=== PATIENT | female | born 1960 ===

== ENCOUNTER 2022-05-15 16:37 | Inpatient (IN) | payer MEDICARE, OTHER ==
[~2022-05-15] VITALS: Ht 162.6 cm; Wt 95.7 kg
[2022-05-15] MEDS ORDERED: MAGNESIUM HYDROXIDE 30 ML LIQUID UDC PO PRN (17:00)
[2022-05-15] MEDS ORDERED: MAG HYDROX/AL HYDROX/SIMETH 30 ML LIQUID UDC PO PRN (17:00)
[2022-05-15] MEDS ORDERED: ZOLPIDEM 5 MG TABLET PO PRN (17:00)
[2022-05-15] MEDS ORDERED: BLOOD SUGAR DIAGNOSTIC 1 EACH STRIP VI ONE (17:30)
[2022-05-15] MEDS ORDERED: TRAM50TA2 PO (18:43)
[2022-05-15] MEDS ORDERED: IBUP-1955 PO (18:47)
--- NOTE | 2022-05-15 19:11 | NUR ---
Admitted a case of 62 years old female from [facility] with history of Bipolar, Hepatitis A, , and tonsiloctomy. Patient is on 5150 status. Patient arrived in a stretcher accompanied by EMT. Initial report given by Merissa JIMENEZ. On admission patient was cooperative to physical assessment and vital signs. Skin assessment revealed lower extremities discoloration. Patient requires minimal assistance with ADL. Upon face to face, patient appeared alert, oriented to person and place, redirectable, anxious, irritable at times. Patient denies SI/HI AH/VH, SOB, pain or any discomfort. Patient refused to sign and consent to all admission documents. Patient was also offered brief orientation to unit rules and policies and given copy of patient's rights handbook. Patient did not bring any belongings or valuables. Psychiatrist Jessica and Medical physician Richard were informed and orders were carried out. Emotional support provided. Fall and safety precautions implemented.
[2022-05-15 19:58] VITALS: BP 108/69
--- NOTE | 2022-05-16 01:56 | NUR ---
GPS: Pt.woke up at this time. Confused,loud,irritable,intrusive,psychotic. Discouraged from being loud. Verbally abusive and verbally agitated. Refusing to be re-directed. Talking to self non-stop. Ativan 1mg PO offered but strongly refused. Safe environment provided. Will continue to monitor behavior for further escalation.
--- NOTE | 2022-05-16 02:25 | NUR ---
GPS: Pt.was combative/uncooperative during incontinence care earlier. Noted pt.to have removed diaper and threw it on the floor.
[2022-05-16] MEDS: LORAZEPAM 1 MG TABLET PO PRN (02:58)
--- NOTE | 2022-05-16 06:23 | NUR ---
GPS: Asleep at this time with resp.even and unlabored. Bed alarm on for safety. Behavior monitoring continues.
[2022-05-16 07:30] VITALS: BP 133/59
[2022-05-16] MEDS ORDERED: TRAMADOL HCL 50 MG TABLET PO PRN (07:30)
[2022-05-16 08:04] LABS: MEAN CORPUSCULAR HEMOGLOBIN 29.2 uug (24.7-32.8); MEAN CORPUSCULAR VOLUME 86.9 fL (75.5-95.3); PLATELET COUNT (AUTO) 264 K/uL (179-408)
[2022-05-16] MEDS ORDERED: OLANZAPINE 10 MG VIAL IM ONE (08:15)
[2022-05-16 08:20] LABS: CREATININE 0.5 mg/dL (0.6-1.3); POTASSIUM 3.7 mmol/L (3.5-5.1)
--- NOTE | 2022-05-16 08:30 | NUR ---
Patient became verbally abusive, aggressive, agitated, threatening physical harm to others, striking out at others, combative. Psychiatrist ordered Zyprexa 10 mg IM. Four people were necessary to administer medication, but no force needed. Emotional support provided. Fall and safety precautions implemented.
[2022-05-16] MEDS: OLANZAPINE 5 MG TABLET PO SCH ×2 (09:00→16:54)
[2022-05-16] MEDS: DIVALPROEX 500 MG TABLET.DR PO SCH ×2 (09:00→20:39)
--- NOTE | 2022-05-16 09:36 | NUR ---
Firearms Report: Advertisement Compositor completed and submitted a [employer] firearms report for 5150 grave disability certifications. A copy of report has been placed in patient chart.
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
--- NOTE | 2022-05-16 13:22 | NUR ---
Treatment Plan: Patient refused to sign treatment plan due to disorganized thought process.
--- NOTE | 2022-05-16 13:22 | NUR ---
NENA Initial Discharge Note: Patient is currently homeless. NENA attempted to call pt's son, Chepe, listed as person to notify on facesheet, to discuss discharge plan; however, person who answered the phone stated they are not Chepe and did not speak Slovak. NENA will continue to work with pt and MD to ensure a safe and proper discharge plan.
--- NOTE | 2022-05-16 13:23 | NUR ---
NENA Family Contact: SW attempted to call pt's son, Chepe ([phone]) listed as person to notify on facesheet, to discuss discharge plan; however, person who answered the phone stated they are not Chepe and did not speak Zambian.
[2022-05-16] MEDS ORDERED: HALOPERIDOL LACTATE 5 MG/1 ML VIAL IM ONE (13:45)
[2022-05-16] MEDS ORDERED: diphenhydrAMINE 50 MG/1 ML VIAL IM ONE (13:45)
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
--- NOTE | 2022-05-16 14:34 | NUR ---
Received patient awake pacing in the hallway. Patient is A/O X 2 to person. Patient is restless, delusional "My name is not Nelsy, I'm Kathy" "That purple purse is mine not yours. Give it to me" "I hate this bar". Patient is argumentative, no directable, intrusive. Reality orientation provided. Fall and safety precautions implemented.
[2022-05-16 16:26] VITALS: BP 142/61
[2022-05-17] MEDS ORDERED: LORAZEPAM 2 MG/1 ML VIAL IM ONE ×3 (01:30→13:15)
[2022-05-17] MEDS ORDERED: OLANZAPINE 10 MG VIAL IM ONE ×2 (01:30→08:15)
--- NOTE | 2022-05-17 02:18 | NUR ---
Received patient at the nurses station in the john-chair sleeping. When she woke up, she started demanding in a loud voice for multiple items, mostly food. She urinated in the john-chair and was reluctant to clean up. As time went on, her behavior escalated to the point where she was yelling, pacing in the halls, urinating into containers and non redirectable. Multiple staff attempted to calm patient, to no avail. Patient then began to bang on the doors which disrupted the entire unit. Patient was not responding to the least restrictive measures available. At that point Dr. Lopez was notified and orders were received for IM medication. Security was notified and present. The patient was compliant with the injections and no hands on was needed. Vital signs stable. Safety strategies remain in place. Continuing close monitoring for further behavior escalations and acute distress of any kind.
--- NOTE | 2022-05-17 08:45 | NUR ---
Patient is awake, intrusive and disruptive. pt is making harassing statements to the staff and other patients. Pt went to the bathroom and came out with a cup in her hand. pt walked inside the nursing station and stated "Hey, I got my urine for you." Pt was making gestures as she was about to throw it. Pt then came to the sink and threw urine in there. pt was difficult to redirect to step out of the nursing station. Pt has poor boundaries, walking into wrong rooms and attempting to get other patients' food. Pt refused scheduled medications. Dr. Lopez was contacted, order for Zyprexa 10mg and Ativan 1 mg IM was obtained. Medication given with present of security. Pt tolerated well.
[2022-05-17] MEDS: OLANZAPINE 5 MG TABLET PO SCH ×2 (09:00→17:00)
[2022-05-17] MEDS: DIVALPROEX 500 MG TABLET.DR PO SCH ×2 (09:00→20:23)
--- NOTE | 2022-05-17 10:00 | NUR ---
Pt is resting in bed, appears asleep. No distress noted. Pt refused VS recheck. Breathing is non-labored. will continue to monitor.
--- NOTE | 2022-05-17 12:45 | NUR ---
PT IS AWAKE, DISRUPTIVE ON THE UNIT. PT WAS DISROBING IN THE DINNING ROOM. PT WAS NOTED TO TOUCH OTHER PATIENT, STATING IT WAS HER . PT IS WALKING INSIDE THE NURSING STATION, DIFFICULT TO REDIRECT, DEMANDS CLOTHING THAT BELONGS TO STAFF. PT IS DEMANDING, CRYING WHEN REDIRECTED. DR. MACARIO WAS CONTACTED, ORDER FOR HALDOL 5MG, ATIVAN 1MG, BENADRYL 25MG IM WAS ORDERED. MEDICATION GIVEN WITH PRESENCE OF SECURITY. PT TOLERATED WELL.
[2022-05-17] MEDS ORDERED: HALOPERIDOL LACTATE 5 MG/1 ML VIAL IM ONE (13:15)
[2022-05-17] MEDS ORDERED: diphenhydrAMINE 50 MG/1 ML VIAL IM ONE (13:15)
--- NOTE | 2022-05-17 14:30 | NUR ---
PT IS RESTING IN BED, APPEARS ASLEEP. NO DISTRESS NOTED. PT IS REFUSING VITAL SIGNS RECHECK.
--- NOTE | 2022-05-17 18:00 | NUR ---
PT IS AWAKE, WALKING AROUND THE UNIT IN A GOWN, NEEDS TO BE REMINDED TO KEEP HER CLOTHES ON. PT IS NON-SENSICAL, ASKING STAFF TO DRIVE HER UP NORTH.
--- NOTE | 2022-05-17 20:24 | NUR ---
GPS: Pt.is loud,psychotic,hostile,intrusive,unpredictable and easily agitated when staff sets limits on her. Needs frequent re-direction from staff. Confused,disorganized and tangential/ has flight of ideas. Frequently going in and out of other pt's rooms. Re-directed constantly. Took Depakote bedtime dose but refused Zyprexa 5mg (1700) dose when re-offered to pt. Pt.has poor insight to her mental illness and present situation. Safe environment provided. Will continue to monitor for further escalation of behavior.
[2022-05-18] MEDS: LORAZEPAM 1 MG TABLET PO PRN ×2 (01:36→20:25)
--- NOTE | 2022-05-18 05:24 | NUR ---
GPS: Pt.now awake and frequently at nurses station trying to test limits. Confused,disorganized,easily agitated when being re-directed. Loud,intrusive and hyper-verbal. Constant re-direction provided. Discouraged from going into other pt's rooms. Safe environment provided. Will continue to monitor behavior for further escalation.
[2022-05-18] MEDS: OLANZAPINE 5 MG TABLET PO SCH ×4 (08:38→20:02)
[2022-05-18] MEDS: DIVALPROEX 500 MG TABLET.DR PO SCH ×2 (08:38→20:02)
[2022-05-18] MEDS ORDERED: diphenhydrAMINE 50 MG/1 ML VIAL IM PRN (10:00)
[2022-05-18] MEDS ORDERED: HALOPERIDOL LACTATE 5 MG/1 ML VIAL IM PRN (10:00)
[2022-05-18] MEDS ORDERED: OLANZAPINE 5 MG TABLET PO SCH (10:00)
--- NOTE | 2022-05-18 10:30 | NUR ---
patient is agitation and not compliant with all po medication, on Riese Haldol and Benadryl IM given per MD ordered.
[2022-05-18] MEDS: diphenhydrAMINE 50 MG/1 ML VIAL IM PRN ×2 (10:32→16:37)
[2022-05-18] MEDS: HALOPERIDOL LACTATE 5 MG/1 ML VIAL IM PRN ×2 (10:32→16:37)
--- NOTE | 2022-05-18 11:32 | NUR ---
WOUND CARE CONSULT: PT SCREAMING AND REFUSING SKIN ASSESSMENT EVEN AFTER HAVING INJECTION. WILL SEE PT PT CONDITION PERMITS. REVIEWED CHART, NURSING DOCUMENTATION AND PHOTOS WHICH INDICATE SOME REDNESS AND DRY ABRASIONS ON FEET, PRESENT ON ADMISSION. DEFER TO PMD.
--- NOTE | 2022-05-18 14:31 | NUR ---
patient is psychotic hostile pacing in hallway , needs frequently redirection . patient constantly stand on exit door unpredictable,continue refused PRN medication ,will close monitoring.
--- NOTE | 2022-05-18 20:11 | NUR ---
GPS: Pt.remains loud,psychotic,labile,irritable and verbally aggressive. Constant re-direction and limit setting done by staff. Took bedtime meds. PO after some persuasion from staff. Safe environment provided. Behavior monitoring continues.
[2022-05-19] MEDS: LORAZEPAM 1 MG TABLET PO PRN ×2 (03:28→19:55)
--- NOTE | 2022-05-19 05:31 | NUR ---
GPS: Pt.awake at this time and frequently at nurses station to ask for things. Needy and attention seeking. Disorganized and non-sensical. Easily irritable when being re-directed. Discouraged from talking loud at this time. Safe environment provided. Staff continues to set limits on pt. Re-directed prn.
[2022-05-19] MEDS: OLANZAPINE 5 MG TABLET PO SCH ×3 (08:32→19:55)
[2022-05-19] MEDS: DIVALPROEX 500 MG TABLET.DR PO SCH ×2 (08:32→19:55)
--- NOTE | 2022-05-19 15:03 | NUR ---
Received patient awake in the activity room. Patient is argumentative, suspicious, anxious, agitated, hyperverbal, sarcastic, accusatory "You're not taking care of this man the whole day. I'm GERONTOLOGY AIDE and know what to do with patients". Patient presents grandiose "I had been all over the world, including [place]" "I had been in [place], and cost me my condo, I regret it". Patient is A/O X 2 to person, place. Patient requires lots of redirection and prompts. Patient is encourage to vent feelings. Fall and safety precautions implemented.
[2022-05-19 16:02] VITALS: BP 153/57
[2022-05-19 19:42] VITALS: BP 121/68
--- NOTE | 2022-05-20 02:09 | NUR ---
Patient has been up and down all night. Coming to the nurses station with no cloths on, demanding food. Very argumentative, delusional, paranoid and difficult to redirect. The patient speaks in a loud voice and has no consideration for the other patients. The patient is verbally abusive and labile. The patient took PM medication but is resistant to PRN medication at this time. Safety Stratiges are in place and continuing to monitor for behavior escalation.
[2022-05-20] MEDS: LORAZEPAM 1 MG TABLET PO PRN ×3 (02:32→20:39)
[2022-05-20 07:56] VITALS: BP 124/101
[2022-05-20] MEDS: OLANZAPINE 5 MG TABLET PO SCH ×3 (08:09→20:39)
[2022-05-20] MEDS: DIVALPROEX 500 MG TABLET.DR PO SCH ×2 (08:09→20:39)
--- NOTE | 2022-05-20 15:09 | NUR ---
Received patient is psychotic hostile pacing in hallway , needs frequently redirection . patient ambulate with walker constantly comes to nurse station asking for coffee,water and food.prn medication given as ordered.
[2022-05-20] MEDS: HALOPERIDOL LACTATE 5 MG/1 ML VIAL IM PRN (17:07)
[2022-05-20] MEDS: diphenhydrAMINE 50 MG/1 ML VIAL IM PRN (17:07)
--- NOTE | 2022-05-20 17:28 | NUR ---
patient refused po medication , IM given as ordered.
[2022-05-20 19:55] VITALS: BP 111/60
--- NOTE | 2022-05-21 04:25 | NUR ---
Patient is intrusive and hyperverbal, yelling out nonsensical, tangential statements. Pt refuses to be redirected and can become aggressive when trying to educate on any topic. Pt continues to yell out insults to staff and other residents.
[2022-05-21] MEDS: ACETAMINOPHEN 325 MG TABLET PO PRN ×2 (07:03→07:07)
[2022-05-21] MEDS: LORAZEPAM 1 MG TABLET PO PRN ×3 (07:03→17:29)
[2022-05-21] MEDS: HALOPERIDOL LACTATE 5 MG/1 ML VIAL IM PRN ×2 (08:22→20:57)
[2022-05-21] MEDS: diphenhydrAMINE 50 MG/1 ML VIAL IM PRN ×2 (08:22→20:57)
[2022-05-21] MEDS: DIVALPROEX 500 MG TABLET.DR PO SCH ×3 (08:29→20:51)
[2022-05-21] MEDS: OLANZAPINE 5 MG TABLET PO SCH ×4 (08:30→20:51)
[2022-05-21] MEDS: HALOPERIDOL 5 MG TABLET PO SCH ×2 (08:30→17:27)
[2022-05-21] MEDS: BENZTROPINE MESYLATE 1 MG TABLET PO SCH ×2 (09:00→17:27)
--- NOTE | 2022-05-21 11:02 | NUR ---
NENA Family Contact: NENA spoke with pt's son, Chepe ([phone]). Chepe stated pt does not have a DPOA or conservator. Chepe is agreeable for pt to discharge to a correction facility. Chepe is aware that pt is riesed and stated pt has a long hx of psych problems and many diagnosis. Per Chepe, the pt has been hospitalized in over 80 psych hospitals. Chepe appeared very helpful and stated he will be available to contact with further treatment and discharge updates.
--- NOTE | 2022-05-21 15:12 | NUR ---
Clinical SW Note: Pt continues to appear verbally abusive. Pt appears at this SW's door multiple times a day and presents with inappropriate statements. Pt continues to appear labile, manic and verbally aggressive.
--- NOTE | 2022-05-21 15:37 | NUR ---
Received patient is agitation intrusive and not compliant with all po medication, on Riese Haldol and Benadryl IM given per MD ordered. patient ambulate in hallway with FWW psychotic irritable ,unable to attend in group activity ,poor insight and poor judgement will continue close monitoring.
--- NOTE | 2022-05-22 06:19 | NUR ---
GPS: Remain uncooperative with care. hyperverbal and verbally abusive to staff. pacing in the smith way and talking to her self, disturbing her room mate. offered ativan for agitation.pt refused. slept 7.15 hrs through the night.
[2022-05-22 07:36] VITALS: BP 182/90
[2022-05-22] MEDS: LORAZEPAM 1 MG TABLET PO PRN ×2 (08:27→23:18)
[2022-05-22] MEDS: OLANZAPINE 5 MG TABLET PO SCH ×2 (08:28→16:49)
[2022-05-22] MEDS: HALOPERIDOL 5 MG TABLET PO SCH ×5 (08:28→20:05)
[2022-05-22] MEDS: BENZTROPINE MESYLATE 1 MG TABLET PO SCH ×2 (08:28→16:49)
[2022-05-22] MEDS: DIVALPROEX 500 MG TABLET.DR PO SCH ×2 (08:28→20:05)
[2022-05-22] MEDS: HALOPERIDOL LACTATE 5 MG/1 ML VIAL IM PRN (13:01)
[2022-05-22] MEDS: diphenhydrAMINE 50 MG/1 ML VIAL IM PRN (13:01)
--- NOTE | 2022-05-22 13:09 | NUR ---
Patient refused Haldol 5 mg PO, Haldol 5 mg IM and Benadryl 25 mg IM was given as back up since patient is riesed.
--- NOTE | 2022-05-22 15:36 | NUR ---
Received patient sleeping in her room. Patient is A/O X 2 to patient, place. Patient is attention seeker, needy, hyperverbal, intrusive, manic, poor impulse control, crying, delusional grandiose, argumentative. Patient requires more than minimal assistance with ADL. Patient had a bowel movement in a cup to serve to Psychiatrist and make him eat it this morning. Reality orientation provided. Fall and safety precautions implemented.
--- NOTE | 2022-05-22 23:18 | NUR ---
patient is wondering around in the hallway pushing the bedside table talking loud and Disturbing other patients. ativan 1 mg po prn given for agitation.
--- NOTE | 2022-05-23 00:18 | NUR ---
patient is calm now. prn effective for agitation.
--- NOTE | 2022-05-23 06:10 | NUR ---
GPS: Remain uncooperative with care. hyperverbal and verbally abusive to staff. pacing in the smith way and talking to her self, disturbing her room mate. offered ativan for agitation.pt refused. slept 4.30 hrs through the night.
[2022-05-23] MEDS: DIVALPROEX 500 MG TABLET.DR PO SCH ×3 (07:20→16:54)
[2022-05-23] MEDS: OLANZAPINE 5 MG TABLET PO SCH ×2 (08:47→16:55)
[2022-05-23] MEDS: BENZTROPINE MESYLATE 1 MG TABLET PO SCH ×2 (08:47→16:54)
[2022-05-23] MEDS: HALOPERIDOL 5 MG TABLET PO SCH ×4 (08:47→20:26)
[2022-05-23] MEDS: HALOPERIDOL LACTATE 5 MG/1 ML VIAL IM PRN ×3 (09:01→17:14)
[2022-05-23] MEDS: diphenhydrAMINE 50 MG/1 ML VIAL IM PRN ×3 (09:01→17:15)
--- NOTE | 2022-05-23 15:06 | NUR ---
Patient is hyperverbal, intrusive, manic, uncooperative with nursing care, refusing vitals and medications. Patient states "I prefer injections instead of pills" Patient was threatening to throw coffee at staff, but did not do it". Patient keeps trying to get in the nursing station. Patient needs to be redirected most of the time. Patient has poor judgement and impulse control. Reality orientation provided. Fall and safety precautions implemented.
[2022-05-23] MEDS: LORAZEPAM 1 MG TABLET PO PRN (20:40)
--- NOTE | 2022-05-23 20:56 | NUR ---
GPS: Remains loud,hyper-verbal,intrusive and testing limits. Has poor impulse control and poor insight to present situation. Needs constant re-direction from staff. Took bedtime med.PO without any problems. Will continue to monitor.
[2022-05-24 07:30] VITALS: BP 149/79
[2022-05-24] MEDS: HALOPERIDOL 5 MG TABLET PO SCH ×3 (08:32→17:08)
[2022-05-24] MEDS: risperiDONE 2 MG TABLET PO SCH ×2 (08:32→17:07)
[2022-05-24] MEDS: DIVALPROEX 500 MG TABLET.DR PO SCH ×3 (08:33→17:07)
[2022-05-24] MEDS: LITHIUM CARBONATE 300 MG CAPSULE PO SCH ×2 (08:33→17:08)
[2022-05-24] MEDS: BENZTROPINE MESYLATE 1 MG TABLET PO SCH ×2 (08:33→17:07)
--- NOTE | 2022-05-24 14:57 | NUR ---
Received patient awake in the hallway. Patient is A/O X 2 to person, place. Patient is demanding, needy, argumentative, intrusive, hyperverbal, accusatory. Patient states "This is a horrible place without cigarettes privileges" "You treat us bad" Patient is verbally abusive. Patient states "Where's the wet back? and the sand nigger one?" "You're chubby with fat ass" "Hey, ugly face". "Where's Dr. jansen?" Requires minimal assistance with ADL. Reality orientation provided. Fall and safety precautions implemented.
[2022-05-24 16:00] VITALS: BP 137/63
[2022-05-24] MEDS: LORAZEPAM 1 MG TABLET PO PRN (19:53)
[2022-05-24 20:12] VITALS: BP 142/69
--- NOTE | 2022-05-24 20:45 | NUR ---
GPS: Remains loud,labile,argumentative,intrusive and continues to require frequent re-direction from staff. Limit setting continues to be provided by staff on a frequent basis. Ativan 1mg PO given earlier. Safe environment provided. Will continue to monitor behavior.
[2022-05-25] MEDS: BENZTROPINE MESYLATE 1 MG TABLET PO SCH ×2 (08:35→21:00)
[2022-05-25] MEDS: risperiDONE 2 MG TABLET PO SCH ×2 (08:35→21:00)
[2022-05-25] MEDS: HALOPERIDOL 5 MG TABLET PO SCH ×4 (08:36→21:00)
[2022-05-25] MEDS: LITHIUM CARBONATE 300 MG CAPSULE PO SCH ×2 (08:36→21:00)
[2022-05-25] MEDS: DIVALPROEX 500 MG TABLET.DR PO SCH ×5 (08:38→21:00)
--- NOTE | 2022-05-25 10:32 | NUR ---
SNF Referral: SW faxed patient's referral packet including: History and Physical, Consultation, Progress Notes, Medication List and Labs to the following facilities for review and possible correction placement: [facility] [address] [place] [address]. NENA spoke with Lizzy tse ([phone]). F:[phone]
[2022-05-25] MEDS: LORAZEPAM 1 MG TABLET PO PRN (12:12)
[2022-05-25] MEDS: chlorproMAZINE 50 MG/2 ML AMPUL IM PRN ×2 (13:20→21:54)
--- NOTE | 2022-05-25 17:59 | NUR ---
patient is psychotic irritable hyperverbal attention seeking ,not compliant with po medication , PRN Im given as ordered .unable to attend in group activity ,poor insight and poor judgement will continue close monitoring.
[2022-05-25 19:44] VITALS: BP 108/49
--- NOTE | 2022-05-25 21:56 | NUR ---
GPS: Pt.resting in bed at this time. Refused all PO meds.despite explanation of risks vs benefits x3. Pt.is Riesed, Thorazine 50 mg given IM as ordered on her left deltoid muscle per her request and joshua.well. Safety emphasized. Will continue to monitor.
[2022-05-26] MEDS: HALOPERIDOL 5 MG TABLET PO SCH (08:11)
[2022-05-26] MEDS: risperiDONE 2 MG TABLET PO SCH ×2 (08:11→21:00)
[2022-05-26] MEDS: DIVALPROEX 500 MG TABLET.DR PO SCH ×3 (08:11→21:00)
[2022-05-26] MEDS: LITHIUM CARBONATE 300 MG CAPSULE PO SCH ×2 (08:11→21:00)
[2022-05-26] MEDS: BENZTROPINE MESYLATE 1 MG TABLET PO SCH ×2 (08:11→21:00)
[2022-05-26] MEDS: chlorproMAZINE 50 MG/2 ML AMPUL IM PRN ×3 (08:16→16:27)
[2022-05-26] MEDS: chlorproMAZINE 25 MG TABLET PO SCH ×3 (12:11→21:00)
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
--- NOTE | 2022-05-27 07:36 | NUR ---
Patient refused 2100 hour po medications and then fell asleep. This nurse did not want to wake patient. Patient's respirations were WNL and did not show s/s of depressed respirations. Pt slept well throughout the entire night/shift. Will continue to monitor.
[2022-05-27] MEDS: risperiDONE 2 MG TABLET PO SCH ×2 (08:11→20:24)
[2022-05-27] MEDS: LITHIUM CARBONATE 300 MG CAPSULE PO SCH ×2 (08:11→20:25)
[2022-05-27] MEDS: DIVALPROEX 500 MG TABLET.DR PO SCH ×3 (08:11→20:25)
[2022-05-27] MEDS: BENZTROPINE MESYLATE 1 MG TABLET PO SCH ×2 (08:11→20:25)
[2022-05-27] MEDS: chlorproMAZINE 25 MG TABLET PO SCH ×4 (08:12→20:25)
[2022-05-27] MEDS: chlorproMAZINE 50 MG/2 ML AMPUL IM PRN ×3 (08:12→16:35)
[2022-05-27] MEDS ORDERED: HALOPERIDOL DECANOATE 50 MG/1 ML AMPUL IM SCH (09:00)
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
[2022-05-27] MEDS: LORAZEPAM 1 MG TABLET PO PRN (20:24)
--- NOTE | 2022-05-28 02:28 | NUR ---
Patient stated she was willing to take scheduled PO medications at 2100 hours. Patient took her medications without question after reminding her that she had the option of taking her medications orally, but if she refused, she would have no choice but to receive an IM injection in place of those medications. Will continue to monitor.
[2022-05-28] MEDS: BENZTROPINE MESYLATE 1 MG TABLET PO SCH ×2 (09:15→20:52)
[2022-05-28] MEDS: risperiDONE 2 MG TABLET PO SCH ×2 (09:15→20:51)
[2022-05-28] MEDS: LITHIUM CARBONATE 300 MG CAPSULE PO SCH ×2 (09:15→20:51)
[2022-05-28] MEDS: DIVALPROEX 500 MG TABLET.DR PO SCH ×3 (09:15→20:51)
[2022-05-28] MEDS: chlorproMAZINE 25 MG TABLET PO SCH ×4 (09:16→20:51)
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
[2022-05-28] MEDS: LORAZEPAM 1 MG TABLET PO PRN ×2 (12:25→20:51)
[2022-05-28 16:24] VITALS: BP 134/81
[2022-05-29 07:30] VITALS: BP 127/73
[2022-05-29] MEDS: LITHIUM CARBONATE 300 MG CAPSULE PO SCH ×2 (09:00→20:09)
[2022-05-29] MEDS: chlorproMAZINE 25 MG TABLET PO SCH ×4 (09:00→20:09)
[2022-05-29] MEDS: risperiDONE 2 MG TABLET PO SCH ×2 (09:00→20:09)
[2022-05-29] MEDS: BENZTROPINE MESYLATE 1 MG TABLET PO SCH ×2 (09:00→20:09)
[2022-05-29] MEDS: DIVALPROEX 500 MG TABLET.DR PO SCH ×3 (09:00→20:10)
[2022-05-29] MEDS: LORAZEPAM 1 MG TABLET PO PRN (12:40)
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
[2022-05-29 16:00] VITALS: BP 103/58
[2022-05-29 19:42] VITALS: BP 112/60
[2022-05-29] MEDS: ACETAMINOPHEN 325 MG TABLET PO PRN (20:09)
--- NOTE | 2022-05-30 05:51 | NUR ---
Pt compliant with all medications this shift. No outbursts or agitation noted. Safety maintained. Will endorse to day shift.
[2022-05-30 07:30] VITALS: BP 116/58
[2022-05-30] MEDS: LITHIUM CARBONATE 300 MG CAPSULE PO SCH (08:59)
[2022-05-30] MEDS: DIVALPROEX 500 MG TABLET.DR PO SCH (08:59)
[2022-05-30] MEDS: risperiDONE 2 MG TABLET PO SCH (08:59)
[2022-05-30] MEDS: BENZTROPINE MESYLATE 1 MG TABLET PO SCH (08:59)
[2022-05-30] MEDS: chlorproMAZINE 25 MG TABLET PO SCH ×2 (09:02→12:02)
--- NOTE | 2022-05-30 09:18 | NUR ---
NENA Discharge Note: Pt will be discharged to [facility] ([phone]) [address] [place] [address] via Ambulance transportation at 11AM. NENA spoke with admin coordinator, Lesley and Maida tse at the facility who states they are ready to accept the patient today. Pt left a voicemail for pts son, Chepe ([phone]) regarding pts discharge plan. Pt is aware and agreeable with discharge plan. Pt is alert and oriented x2, is unable to plan for self-care at this time. However, pt is willing to accept care at SNF. Pt denies any suicidal or homicidal ideation. Pt will follow-up at the facility with Psychiatrist, Dr. Lopez ([phone]) and Tripe Scraper, Dr. Hernandez. Pt presents with calm mood and congruent affect. PHARMACY: [facility] [phone]) [address] [address].
--- NOTE | 2022-05-30 12:08 | NUR ---
Pt is being discharged to [facility], being picked up by an ambulance. pt is aware and willing to go. Discharge instructions provided. Pt's vs are stable. Report was given to TONY Adam at the facility. Pt had no belongings.
== END 2022-05-30 12:14 | DRG 885 ==
LOC: GPS 16:37
PROVIDERS: ADMIT Psychiatry & Neurology Psychiatry; ATTEND Nurse Practitioner Family
DX: F25.0 Schizoaffective disorder, bipolar type (principal); E87.6 Hypokalemia; F29 Unspecified psychosis not due to a substance or known physiological condition; F39 Unspecified mood [affective] disorder; S91.301A Unspecified open wound, right foot, initial encounter; X58.XXXA Exposure to other specified factors, initial encounter; Y93.9 Activity, unspecified; Y92.89 Other specified places as the place of occurrence of the external cause; Z20.822 Contact with and (suspected) exposure to COVID-19; F19.10 Other psychoactive substance abuse, uncomplicated
CPT/HCPCS: 36415; 71045; 80164; 85025; 87400; A4663; J1200; J1630; J1631; J2060; J2358; J3230; Q0161